=== PATIENT | female | born 1955 | race Caucasian/White ===

== ENCOUNTER 2018-09-15 03:54 | Emergency (ER) | payer MEDICAID ==
[~2018-09-15] VITALS: Ht 157.5 cm; Wt 61.0 kg
[2018-09-15] MEDS ORDERED: ASPI-515 PO (04:13)
[2018-09-15] MEDS ORDERED: SIMV20TA3 PO (04:13)
[2018-09-15] MEDS ORDERED: DIGO125T PO (04:13)
[2018-09-15] MEDS ORDERED: LISI30TA4 PO (04:13)
[2018-09-15] MEDS ORDERED: FURO40TA6 PO (04:13)
[2018-09-15] MEDS ORDERED: CARV12.543 PO (04:13)
[2018-09-15] MEDS ORDERED: LEVO88TA4 PO (04:14)
[2018-09-15] MEDS ORDERED: LORazepam 0.5MG TABLET PO ONE (04:30)
[2018-09-15] MEDS ORDERED: ASPIRIN 81 MG TABLET CHEW PO ONE (04:30)
[2018-09-15] MEDS ORDERED: LORazepam 0.5MG TABLET ONE (04:31)
[2018-09-15] MEDS ORDERED: ASPIRIN 81 MG TABLET CHEW ONE (04:31)
[2018-09-15 04:40] LABS: BASOPHILS # (AUTO) 0.06 x10^3/uL (0-0.1); BASOPHILS % (AUTO) 0 % (0-1); EOSINOPHILS # (AUTO) 0.05 x10^3/uL (0-0.4); EOSINOPHILS % (AUTO) 0 % (1-7); LYMPHOCYTES % (AUTO) 11 % (22-44); MD NO; MEAN CORPUSCULAR HEMOGLOBIN 29.7 pg (27.0-34.8); MEAN CORPUSCULAR HGB CONC 33.4 g/dL (32.4-35.8); MEAN CORPUSCULAR VOLUME 88.8 fL (80-100); MEAN PLATELET VOLUME 10.2 fL (7.4-10.4); MONOCYTES # (AUTO) 0.74 x10^3/uL (0.2-0.8); MONOCYTES % (AUTO) 5 % (2-9); NEUTROPHILS # (AUTO) 11.78 x10^3/uL (1.8-6.8); NEUTROPHILS % (AUTO) 83 % (42-75); PLATELET COUNT 180 x10^3/uL (130-400); RED CELL DISTRIBUTION WIDTH 13.8 % (9.6-15.2)
[2018-09-15 04:52] LABS: ALBUMIN 3.7 g/dL (3.4-5.0); ANION GAP 9 mmol/L (5-15); CALCIUM 8.5 mg/dL (8.5-10.1); CHLORIDE 116 mmol/L (98-107)
[2018-09-15 04:55] LABS: TROPONIN I 0.038 ng/mL (0.000-0.045)
[2018-09-15] MEDS ORDERED: OMNIPAQUE 350 MG/ML, 100ML BOTTLE ONE (05:35)
[2018-09-15] MEDS ORDERED: DIGOXIN 0.125 MG TABLET PO ONE (06:00)
[2018-09-15] MEDS ORDERED: FUROSEMIDE 40 MG/4 ML ONE (06:13)
[2018-09-15 06:17] VITALS: BP 123/87
[2018-09-15] MEDS ORDERED: FUROSEMIDE 40 MG/4 ML IV ONE (06:30)
== END 2018-09-15 07:03 | disposition home or self-care (01) ==
LOC: ED 04:59
DX: I50.9 Heart failure, unspecified (principal); F41.1 Generalized anxiety disorder; E78.00 Pure hypercholesterolemia, unspecified
CPT/HCPCS: 36415; 71045; 71275; 80048; 80162; 82040; 83880; 84484; 85025; 93005; 96374; 99285; J1940; Q9967

== ENCOUNTER 2018-11-18 05:31 | Emergency (ER) | payer MEDICAID, OTHER ==
[~2018-11-18] VITALS: Ht 167.6 cm; Wt 63.7 kg
[~2018-11-18 05:31] MED LIST: ASPI-515 PO; CARV12.543 PO; DIGO125T PO; FURO40TA6 PO; LEVO88TA4 PO; LISI30TA4 PO; SIMV20TA3 PO
--- NOTE | 2018-11-18 05:48 | NUR ---
PT PRESENTS TO ED W/ C/O L FLANK PAIN AND LLQ ABD PAIN TONIGHT. STATES "I THINK ITS MY KIDNEY." DENIES ANY SYMPTOMS. DENIES ANY FEVERS, N/V/D. DENIES CP/SOB. STATES "A LITTLE NAUSEOUS TONIGHT" NO EMESIS NOTED AND PT TOLERATING PO INTAKE. MONITORING APPLIED. VSS. PT AMB W/ STEADY GAIT TO RR TO PROVIDE UA.
[2018-11-18] MEDS ORDERED: PHENAZOPYRIDINE 200 MG TABLET ONE (05:56)
[2018-11-18] MEDS ORDERED: PHENAZOPYRIDINE 200 MG TABLET PO ONE (06:00)
[2018-11-18 06:32] VITALS: BP 115/97
[2018-11-18 06:39] LABS: CULTURE INDICATED? YES; MICROSCOPIC AUTO
--- NOTE | 2018-11-18 06:41 | NUR ---
ALL RESULTS BACK. PT UP FOR RECHECK.
--- NOTE | 2018-11-18 07:01 | NUR ---
PT REPORT TO JEAN COMBS.
== END 2018-11-18 07:16 | disposition home or self-care (01) ==
LOC: ED 07:10
DX: N30.00 Acute cystitis without hematuria (principal); I11.9 Hypertensive heart disease without heart failure; Z87.891 Personal history of nicotine dependence; Z95.0 Presence of cardiac pacemaker
CPT/HCPCS: 81001; 87077; 87086; 87186; 99283

== ENCOUNTER 2019-04-12 20:33 | Emergency (ER) | payer MEDICAID, OTHER ==
[~2019-04-12] VITALS: Ht 157.5 cm; Wt 64.2 kg
[2019-04-12] MEDS ORDERED: APIX5TAB PO (20:47)
[2019-04-12] MEDS ORDERED: METO25TA35 PO (20:47)
--- NOTE | 2019-04-12 20:54 | NUR ---
PT TO ED FOR SOB STARTING TODAY. HX CHF AND ANX. PT STATES S/S MAY BE RELATED TO ANX, THIS HAS HAPPENED BEFORE. PT CONNECTED TO MONIOTRS. VSS. NO NEEDS EXPRESSED. [facility]. AWAITING EDMD ASSESSMENT.
--- NOTE | 2019-04-12 21:00 | NUR ---
EDMD TO BS FOR ASSESSMENT.
[2019-04-12 21:28] LABS: BASOPHILS # (AUTO) 0.05 x10^3/uL (0-0.1); BASOPHILS % (AUTO) 1 % (0-1); EOSINOPHILS # (AUTO) 0.13 x10^3/uL (0-0.4); EOSINOPHILS % (AUTO) 1 % (1-7); LYMPHOCYTES # (AUTO) 2.01 x10^3/uL (1-3.4); LYMPHOCYTES % (AUTO) 21 % (22-44); MD NO; MEAN CORPUSCULAR HEMOGLOBIN 28.3 pg (27.0-34.8); MEAN CORPUSCULAR HGB CONC 32.2 g/dL (32.4-35.8); MEAN CORPUSCULAR VOLUME 88.1 fL (80-100); MEAN PLATELET VOLUME 9.1 fL (7.4-10.4); MONOCYTES # (AUTO) 0.56 x10^3/uL (0.2-0.8); MONOCYTES % (AUTO) 6 % (2-9); NEUTROPHILS # (AUTO) 7.04 x10^3/uL (1.8-6.8); NEUTROPHILS % (AUTO) 72 % (42-75); PLATELET COUNT 223 x10^3/uL (130-400); RED BLOOD COUNT 4.35 x10^6/uL (3.82-5.3); RED CELL DISTRIBUTION WIDTH 14.3 % (9.6-15.2)
[2019-04-12 21:40] LABS: ALBUMIN 3.9 g/dL (3.4-5.0); ANION GAP 8 mmol/L (5-15); CALCIUM 8.8 mg/dL (8.5-10.1); CHLORIDE 110 mmol/L (98-107); CREATININE 1.06 mg/dL (0.55-1.02)
[2019-04-12 21:44] LABS: TROPONIN I 0.023 ng/mL (0.000-0.045)
--- NOTE | 2019-04-12 21:50 | NUR ---
RECEIVED REPORT FROM TIGRE COMBS, ASSUMING CARE OF PT
[2019-04-12 21:52] VITALS: BP 109/76
--- NOTE | 2019-04-12 21:53 | NUR ---
PT RESTING CALMLY IN BED AT THIS TIME, STATES FEELING BETTER. VSS. FAMILY AT BEDSIDE. CALL [facility] WITHIN REACH. AWAITING LABS AND RECHECK
--- NOTE | 2019-04-12 22:05 | NUR ---
ALL RESULTS BACK AT THIS TIME, CHART UP FOR RECHECK
[2019-04-12] MEDS ORDERED: FUROSEMIDE 40 MG TABLET PO STA (22:24)
[2019-04-12] MEDS ORDERED: FUROSEMIDE 40 MG/4 ML IV ONE (22:30)
[2019-04-12] MEDS ORDERED: FUROSEMIDE 40 MG TABLET ONE (22:43)
== END 2019-04-12 22:49 | disposition home or self-care (01) ==
LOC: ED 22:15
DX: I11.0 Hypertensive heart disease with heart failure (principal); I50.9 Heart failure, unspecified; I48.91 Unspecified atrial fibrillation; E78.00 Pure hypercholesterolemia, unspecified; F17.200 Nicotine dependence, unspecified, uncomplicated; Z95.0 Presence of cardiac pacemaker
CPT/HCPCS: 36415; 71045; 80048; 80162; 82040; 83880; 84484; 85025; 93005; 99284